=== PATIENT | male | born 1960 | race Caucasian/White ===

== ENCOUNTER → 2018-07-18 14:44 | Outpatient (CLI) | payer BC, OTHER, SELFPAY ==
--- NOTE | 2018-07-18 14:49 | XR_ITS ---
XR knee RT 3V HISTORY: Twisting injury with pain ITS.REASON: RT KNEE PAIN ORDERING PHYSICIAN: Carson Kat MD PATIENT AGE: 58 years COMPARISON: None FINDINGS: There are mild osteoarthritic changes of all 3 compartments with decrease in the joint space and osteophyte formation. There is a 9 mm area of calcific density in the inner condylar region of the distal femur and could be due to an osteophyte or loose body. No fracture or dislocation. No lytic or blastic change. IMPRESSION: Osteoarthritis with possible loose body versus osteophyte in the intercondylar region
== END ==
PROVIDERS: PCP Family Medicine; Visit Provider Family Medicine
DX: M25.561 Pain in right knee (principal)
CPT/HCPCS: 73562

== ENCOUNTER → 2020-08-06 10:29 | Outpatient (CLI) | payer BC, OTHER, SELFPAY | PROVIDERS: PCP Physician Assistant; Visit Provider Physician Assistant | DX: Z20.828 Contact with and (suspected) exposure to other viral communicable diseases (principal); U07.1 COVID-19 | CPT/HCPCS: U0003 ==

== ENCOUNTER 2022-02-17 18:20 | Emergency (ER) | payer BC, OTHER, SELFPAY ==
[2022-02-17 18:25] VITALS: BP 143/70; PULSE 93; RESP 20; TEMP 37.7; O2SAT 95; BMI 34.0
--- NOTE | 2022-02-17 18:45 | HMH.EDUTC ---
[facility] [place] Disposition Clinical Impression: URI (upper respiratory infection) Qualifiers: URI type: unspecified URI Qualified Code(s): J06.9 - Acute upper respiratory infection, unspecified Disposition: Home, Self-Care Condition on Discharge: Good Instructions: DI for Fever (Symptom) -- Adult Additional Instructions: *Monitor Temp, Over the counter Motrin or Tylenol as directed/as needed Tylenol every 4 hours and Motrin every 6 hours (as long as your family doctor has told you that you can take it) for fever or pain. and straight to ER if unable to lower temp less than 101.0 after medication given *Warm salt water gargles may help to soothe the throat *Throat Lozenges *Warm fluids like tea with honey may help to soothe the throat *Sleep elevated *Humidifier/Vaporizer Your throat swab was sent for culture. Those results are typically sent to your primary care. Be sure to follow up in 2-3 days with your family doctor/primary care physician if no improvement so they can review those result and treat if necessary. If you don?t have a primary care doctor, I recommend you get one but in the mean time, you will have to return to a walk in clinic Follow up IMMEDIATELY for new or worsening symptoms or no Noticeable improvement over the next 48-72 hours. 911 for difficulty breathing or swallowing You were tested for today for COVID19 your test result should be back in the next 24-48 hours, you may Check your results on the [facility] My health portal Make sure to take your Vitamins Vit. C Vit D and Zinc if you can take them Prescriptions: predniSONE [Deltasone 10mg tablet] 10 mg PO BID 5 Days #10 tab Transmission Status: Pending to [id number] Azithromycin [Z-Catalino 250mg Tab] 250 mg PO DIRECTED #6 tab Transmission Status: Pending to [id number] Referrals: Carson Kat MD [Primary Care Provider] - As needed Forms: Work/School Release Time of Disposition: 19:14 Medical Decision Making - Jimenez Inquiry Pt receiving controlled substance: No Jimenez was queried for this patient: No Vital Signs: 02/17/22 18:25 02/17/22 18:48 Temperature 99.8 F H 99.8 F H Temperature Source Oral Pulse Rate 93 H Pulse Rate [Right Brachial] 93 H Respiratory Rate 20 20 Blood Pressure 143/70 H Blood Pressure [Right Arm] 143/70 H Blood Pressure Mean [Right Arm] 94 Blood Pressure Source [Right Arm] Automatic Cuff Blood Pressure Position [Right Arm] Sitting 02 Sat by Pulse Oximetry 95 Oxygen Delivery Method Room Air - Lab Data Lab results reviewed: Yes: I reviewed the patient's lab results. Lab Results 02/17/22 18:38: Group A Strep Rapid Negative Orders (Tests/Meds): ORDERS Category Date Time Status Full Resp Panel w/COVID ([facility]) Routine Lab 02/17/22 18:38 Received Strep Screen Confirmation Stat Micro 02/17/22 18:38 Received Medical Decision Narrative: Patient state that he has taken azithromycin and Medrol in the past without reactions or complications [facility] [place] HPI - General Stated complaint: fever,chills,congestion Time Seen by Provider: 02/17/22 18:46 Mode of Arrival: Ambulatory Source of Information: Patient Limitations: No Limitations Description of Symptoms (Recalled from Triage Doc. by RN): PATIENT C/O FEVER AND CONGESTION SINCE YESTERDAY EVENING HEENT Symptoms (Recalled from RN notes): Yes Resp Symptoms (Recalled from RN notes): No Skin Symptoms (Recalled from RN notes): No MS Symptoms (Recalled from RN notes): No Functional Status (Recalled from RN notes): WNL - History of Present Illness Provider Complaint: Patient states that he started feeling bad yesterday States that he has been having fever, body aches, chills sinus congestion and pressure and over all not feeling well States that today he has continued to have fever on and off all day and this evening he was still not feeling well so he came in to get checked - Related Data Home Medications Medication Instructions Al
[2022-02-17 18:48] VITALS: BP 143/70; PULSE 93; RESP 20; TEMP 37.7; O2SAT 95
[2022-02-17 18:51] LABS: Adenovirus,PCR Not Detected (NotDetected); Bordetella Pertussis Not Detected (NotDetected); Chlamydophila Pneumoniae, PCR Not Detected (NotDetected); Coronavirus 19, PCR Not Detected (NotDetected); Coronavirus 229E Not Detected (NotDetected); Coronavirus NL63 Not Detected (NotDetected); Coronavirus OC43 Not Detected (NotDetected); Coronovirus HKU1,PCR Not Detected (NotDetected); Human Metapneumovirus Not Detected (NotDetected); Influenza A, PCR Not Detected (NotDetected); Influenza AH1, 2009 Not Detected (NotDetected); Influenza AH1, PCR Not Detected (NotDetected); Influenza AH3,PCR Not Detected (NotDetected); Influenza B, PCR Not Detected (NotDetected); Mycoplasma Pneumoniae, PCR Not Detected (NotDetected); Parainfluenza 1, PCR Not Detected (NotDetected); Parainfluenza 2, PCR Not Detected (NotDetected); Parainfluenza 3, PCR Not Detected (NotDetected); Parainfluenza 4, PCR Not Detected (NotDetected); Respiratory Syncytial Virus Not Detected (NotDetected); Rhinovirus/Enterovirus Not Detected (NotDetected)
[2022-02-17 19:02] LABS: Strep Scrn Group A (Rapid) Negative (Negative)
== END 2022-02-17 19:41 | disposition home or self-care (01) ==
PROVIDERS: Emergency Provider Nurse Practitioner; PCP Family Medicine
DX: J06.9 Acute upper respiratory infection, unspecified (principal)
CPT/HCPCS: 87430; 87581; 87632; 87798; 99212; C9803; G0463; U0003; U0005

== ENCOUNTER → 2022-04-29 13:30 | Outpatient (CLI) | payer BC, OTHER, SELFPAY ==
[2022-05-01 08:47] LABS: PSA, Free 1.19 ng/mL; Prostate Specific Ag 7.7 ng/mL (0.0-4.0)
== END ==
PROVIDERS: PCP Family Medicine; Visit Provider Urology
DX: R35.0 Frequency of micturition (principal); R97.20 Elevated prostate specific antigen [PSA]
CPT/HCPCS: 36415; 84153; 84154

== ENCOUNTER 2022-10-11 08:00 | Emergency (ER) | payer BC, OTHER, SELFPAY ==
[2022-10-11 08:10] VITALS: BP 147/86; PULSE 78; RESP 20; TEMP 36.6; O2SAT 96; BMI 34.2
--- NOTE | 2022-10-11 08:31 | EXP.UTC ---
Discharge Plan Disposition Patient Disposition: Home, Self-Care Condition: Good Prescriptions Prescriptions: New azithromycin [Zithromax] 250 mg tablet 250 mg PO UD DOSE PK Qty: 6 0RF Rx Instructions: Take two (2) tablets today, then one (1) tablet days #2 thru #5 benzonatate [benzonatate] 100 mg capsule 100 mg PO TIDP PRN (Reason: Cough) Qty: 30 0RF methylprednisolone 4 mg Tablets,Dose Pack 4 mg PO DIRECTED Qty: 21 0RF No Action tamsulosin 0.4 mg capsule 0.4 mg PO DAILY simvastatin 40 mg tablet 40 mg PO DAILY amlodipine benzoate 1 mg/mL suspension 10 mg PO DAILY hydrochlorothiazide 12.5 mg tablet 12.5 mg PO DAILY metoprolol succinate 25 mg tablet extended release 24 hr 25 mg PO DAILY fexofenadine [Amber Allergy] 180 mg tablet 180 mg PO DAILY oxymetazoline [Mucinex Sinus-Max] 0.05 % spray,non-aerosol 2 spray INTRANASAL Q12H PRN timolol maleate 0.25 % drops 1 drp OPHTHALMIC DAILY Gemtesa 75 mg tablet 75 mg PO DAILY Qty: 30 5RF prednisone 10 MG tablet 10 mg PO BID 5 Days Qty: 10 0RF Referrals Follow up/Referrals: Carson Kat MD [Primary Care Provider] - See instructions Activity Restrictions/Add. Instructions Additional Instructions/Restrictions: Drink plenty of fluids. Take tylenol or ibuprofen for pain or fever. Take the medications as directed. Follow up with your regular doctor. GO TO THE ER FOR ANY WORSENING SYMPTOMS Clinical Impressions Clinical Impression: Sinusitis Stand Alone Forms Stand Alone Forms: Work/School Release Discharge ED Provider: Rahul Davis [facility] [place] General Stated complaint: cough, chest congestion, BRYANT Mode of Arrival: Ambulatory Source of Information: Patient Limitations: No Limitations Time Seen by Provider: 10/11/22 08:30 Description of Symptoms (Recalled from Triage Doc. by RN): sinus pressure, congestion, and cough HEENT Symptoms (Recalled from RN notes): Yes Resp Symptoms (Recalled from RN notes): No Skin Symptoms (Recalled from RN notes): No MS Symptoms (Recalled from RN notes): No Functional Status (Recalled from RN notes): n/a History of Present Illness Provider Complaint: He states that for the past 1 week he has had sinus congestion, ear pressure and a cough. Related Data Home Medications Medication Instructions Recorded Confirmed amlodipine benzoate 1 mg/mL oral 10 mg PO DAILY 12/10/21 04/29/22 suspension fexofenadine 180 mg tablet 180 mg PO DAILY 12/10/21 04/29/22 (Amber Allergy) hydrochlorothiazide 12.5 mg tablet 12.5 mg PO DAILY 12/10/21 04/29/22 metoprolol succinate 25 mg 25 mg PO DAILY 12/10/21 04/29/22 tablet,extended release 24 hr oxymetazoline 0.05 % nasal spray 2 spray intranasal Q12H PRN 12/10/21 04/29/22 (Mucinex Sinus-Max) simvastatin 40 mg tablet 40 mg PO DAILY 12/10/21 04/29/22 tamsulosin 0.4 mg capsule 0.4 mg PO DAILY 12/10/21 04/29/22 timolol maleate 0.25 % eye drops 1 drp ophthalmic (eye) DAILY 12/10/21 04/29/22 Previous Rx's Medication Instructions Recorded prednisone 10 mg tablet 10 mg PO BID 5 days #10 tabs 02/17/22 vibegron 75 mg tablet (Gemtesa) 75 mg PO DAILY #30 tabs 05/09/22 azithromycin 250 mg tablet 250 mg PO UD DOSE PK #6 tabs 10/11/22 (Zithromax) benzonatate 100 mg capsule 100 mg PO TIDP PRN Cough #30 caps 10/11/22 methylprednisolone 4 mg tablets in 4 mg PO DIRECTED #21 tabs 10/11/22 a dose pack Allergies Allergy/AdvReac Type Severity Reaction Status Date / Time Penicillins Allergy Verified 10/11/22 08:27 Worker's Comp Is this a Worker's Comp case?: No [facility] Disclaimer: The information contained in this section may have been updated after the patient was seen, as this information can be updated by other users. Social History Smoking Status: Never smoker second hand exposure: No alcohol intake: never substance use
[2022-10-11 09:15] VITALS: BP 147/86; PULSE 78; RESP 20; TEMP 36.6; O2SAT 96
== END 2022-10-11 09:15 | disposition home or self-care (01) ==
PROVIDERS: Emergency Provider Nurse Practitioner Family; PCP Family Medicine
DX: J32.9 Chronic sinusitis, unspecified (principal)
CPT/HCPCS: 99212; 99213; G0463

== ENCOUNTER 2023-09-22 06:10 | Day surgery (SDC) | payer OTHER, SELFPAY ==
[2023-09-20 13:52] VITALS: BMI 35.5
[2023-09-22] VITALS (7 sets, daily range): BP systolic 103–137; BP diastolic 66–93; PULSE 67–84; RESP 16–18; TEMP 36.3–36.6; O2SAT 90–98
[2023-09-22] MEDS: LACTATED RINGERS 1000ML 1,000 ML 25 ML IV (06:45)
--- NOTE | 2023-09-22 07:16 | P.PNANES_ITS ---
[facility] Disclaimer: The information contained in this section may have been updated after the patient was seen, as this information can be updated by other users. Medical History Hyperlipidemia Hypertension Surgical History History of back surgery Family History Other Family history of cancer Family history of diabetes mellitus type II Social History Smoking Status: Never smoker second hand exposure: No alcohol intake: never substance use type: denies use current occupational status: employed Travel in the last 8 weeks: None household members: spouse housing: house caffeine: No [facility] Anesthesia Checklist Patient Identification Patient Identification: Arm Band Structural Data Admitted From: Home Planned Operative Procedure/s: Colonoscopy Consent for Planned Operative Procedure(s) Verified: Yes Verified Documents: Surgical Consent and History and Physical NPO Status Verified Time NPO: 00:00 Additional verifications Anesthesia Reactions: No Airway Assessment Mallampati Score:: Class II C-Spine Mobility Assessed: Yes TMJ Mobility Assessed: Yes Dentition: Dentures-good fit (upper partial. Unable to remove per patient) Neurological Assessment Level of Consciousness: Awake and Alert Anesthesia Plan Anesthesia Risk discussed: Yes Anesthesia Plan: Verified ASA Class: II Anesthesia Type: MAC
--- NOTE | 2023-09-22 07:51 | HMH.SCOPE ---
Procedure: Date: 09/22/23 Patient Date of :: 1960 Procedure Performed:: Total colonoscopy to terminal ileum with snare polypectomy x 3 Indications:: Patient is a 63-year-old male referred for screening colonoscopy. He does state that he underwent a colonoscopy 20 years ago . Performing Provider:: Gt Patel MD Referring Provider:: Buddy Kat MD Sedation:: MAC sedation Procedure:: Patient history was obtained and appropriate physical examination was performed. Patient's medications and allergies were reviewed. Informed consent was obtained after explaining the benefits, alternatives, and risks of the procedure including, but not limited to, bleeding, perforation, missed lesions, and adverse reaction to anesthesia medications. Patient was transported to endoscopy procedure room. Patient was connected to monitoring devices. Throughout the procedure the patient's blood pressure, pulse, and oxygen saturations were monitored continuously. Patient identification and planned procedure were verified by the staff. Patient was positioned in lateral decubitus position. Digital anorectal exam was performed. Variable stiffness Olympus colonoscope was inserted and advanced under direct visualization to the cecum. Adequacy of the colonic preparation was noted. The colonoscope was advanced a short distance into the terminal ileum. The colonoscope was then slowly withdrawn while carefully examining the color, texture, anatomy, and integrity of the mucosoa circumferentially. Within the rectum retroflexion was performed. Colonoscope was then withdrawn. . Colonic preparation was good. Terminal ileum was normal. Within the cecum there was a small sessile polyp removed with cold snare. In the ascending colon there was an elongated somewhat of a ridge polyp which was removed with cold snare. He had a few rare left-sided diverticuli. In the proximal sigmoid colon there was a tiny polyp removed with cold snare. . Findings:: Rare diverticuli Polyps as noted above (adenomatous appearing polyp in the cecum, ascending, and proximal sigmoid) Recommendations:: Likely repeat colonoscopy 3 years pending pathology Complications:: None immediately apparent Estimated blood obtained (mL): 1 Colonoscopy Component Colonoscopy Component Was a colonoscopy performed during today's procedure?: Yes Recommended follow up colonoscopy of at least 10 years?: No If no, follow up colonoscopy recommended in ___ years?: See above Reason for not recommending >/= 10 yr follow-up interval?: See above
--- NOTE | 2023-09-22 07:57 | P.PNANES_ITS ---
[facility] Anesthesia Record Part I Anesthesia Record I Intake, IV Amount: 500 Hydration: Adequate Estimated blood loss (mL): 1 Urine output (mL): 0 Blood Products used (#): none Blood Pressure: 103/68 SaO2: 90 Pulse Rate: 79 Airway Patency: Patent Respiratory Rate: 16 Temperature: 97.5 F Patient is:: Drowsy and Stable Stable to PACU at:: 07:52
== END 2023-09-22 08:30 | disposition home or self-care (01) ==
PROVIDERS: PCP Family Medicine; Visit Provider Surgery
PROC: 0DJD8ZZ Inspection of Lower Intestinal Tract, Via Natural or Artificial Opening Endoscopic (ICD-10-PCS; CPT 45385; principal; 2023-09-22 07:30)
DX: Z12.11 Encounter for screening for malignant neoplasm of colon (principal); D12.2 Benign neoplasm of ascending colon; D12.0 Benign neoplasm of cecum; D12.5 Benign neoplasm of sigmoid colon; K57.30 Diverticulosis of large intestine without perforation or abscess without bleeding
CPT/HCPCS: 45385

== ENCOUNTER 2024-05-02 14:03 | Outpatient (CLI) | payer OTHER, SELFPAY ==
--- NOTE | 2024-05-02 14:07 | XR_ITS ---
FINAL REPORT CLINICAL HISTORY: knee pain FINDINGS: Right knee Three views were obtained. There is no acute fracture or dislocation. There are moderate degenerative changes with medial compartment narrowing. Soft tissue calcification is seen posteriorly. IMPRESSION: Moderate degenerative changes. Reviewed, Interpreted and Dictated by Gt Arredondo III, MD Transcribed by Sheila Delacruz Authenticated and [facility]
== END 2024-05-02 23:59 | disposition home or self-care (01) ==
LOC: RAD 14:04
PROVIDERS: PCP Family Medicine; Visit Provider Orthopaedic Surgery
DX: M25.561 Pain in right knee (principal); M17.11 Unilateral primary osteoarthritis, right knee
CPT/HCPCS: 73562

== ENCOUNTER 2024-07-24 07:38 | Outpatient (CLI) | payer OTHER, SELFPAY ==
[2024-07-24 07:58] LABS: Basophils # 0.1 K/mm3 (0-0.2); Basophils % 1.3 % (0.1-2.0); Eosinophils # 0.2 K/mm3 (0.0-0.4); Eosinophils % 2.5 % (0.1-12.0); Hemoglobin 16.5 g/dL (14.1-18.0); Lymphocytes % 30.4 % (10-50); Mean Corpuscular HGB Conc 33.7 g/dL (31.8-35.4); Mean Corpuscular Hemoglobin 30.6 pg (27.0-31.2); Mean Platelet Volume 7.3 fl (7.4-10.4); Monocytes # 0.3 K/mm3 (0.1-1.0); Monocytes % 4.4 % (1.7-9.3); Neutrophils % 61.5 % (37.0-80.0); Platelet Count 224 K/mm3 (142-424); Red Blood Count 5.38 M/mm3 (4.60-6.20); Red Cell Distribution Width 13.8 % (11.5-17.5); White Blood Count 6.5 K/mm3 (4.8-10.8)
[2024-07-24 08:42] LABS: Albumin Level 4.4 g/dl (3.5-5.0); Chloride 110 mmol/L (98-107); Potassium 3.9 mmoL/L (3.5-5.1); Sodium 142 mmol/L (136-145)
[2024-07-24 08:44] LABS: Alanine Aminotransferase 32 U/L (12-78); Aspartate Amino Transferase 31 U/L (17-59); Blood Urea Nitrogen 14 mg/dl (9-20); Estimated Glomerular Filt Rate 75 ml/min (>60); GFR (African American) 91 ML/MIN (>60)
[2024-07-24 08:45] LABS: Albumin/Globulin Ratio 1.8 (1.1-1.8); Alkaline Phosphatase 82 U/L (38-126); Anion Gap 10.9 mEq/L (5-15); Bilirubin,Total 0.5 mg/dl (0.2-1.3); Calcium 9.7 mg/dl (8.4-10.2); Carbon Dioxide 25 mmol/L (22.0-30.0); Chol/HDL Ratio 4.3 (1-3.5); Cholesterol 159 mg/dl (140-200); Globulin 2.5 g/dL (1.3-3.2); Glucose 126 mg/dl (74-100); HDL Cholesterol 37 mg/dl (40-60); Total Protein,Serum 6.9 g/dl (6.3-8.2); Triglycerides 156 mg/dl (30-150); VLDL Cholesterol 31 mg/dL (0-40)
[2024-07-24 08:56] LABS: Direct LDL Cholesterol 99.21 mg/dL (100-129)
[2024-07-24 09:35] LABS: Hemoglobin A1C 5.9 % (4.0-6.0)
== END 2024-07-24 23:59 | disposition home or self-care (01) ==
LOC: LAB 07:39
PROVIDERS: PCP Internal Medicine; Visit Provider Internal Medicine
DX: Z00.00 Encounter for general adult medical examination without abnormal findings (principal); Z13.1 Encounter for screening for diabetes mellitus; Z13.220 Encounter for screening for lipoid disorders
CPT/HCPCS: 36415; 80053; 80061; 83036; 85025

== ENCOUNTER 2025-04-25 12:08 | Outpatient (CLI) | payer OTHER, SELFPAY ==
--- NOTE | 2025-04-25 12:11 | XR_ITS ---
FINAL REPORT CLINICAL HISTORY: Low back pain FINDINGS: AP and lateral views of the lumbar spine were obtained. There is no prior exam for comparison. There is no acute fracture or malalignment. Vertebral body height is preserved. There is mild degenerative disc disease, most pronounced at L5-S1. No acute paraspinal abnormality. IMPRESSION: Mild degenerative disc disease. Reviewed, Interpreted and Dictated by Anita Lowe MD Transcribed by Sheila Delacruz Authenticated and [facility]
== END 2025-04-25 23:59 | disposition home or self-care (01) ==
LOC: RAD 12:09
PROVIDERS: PCP Internal Medicine; Visit Provider Internal Medicine
DX: M51.369 Other intervertebral disc degeneration, lumbar region without mention of lumbar back pain or lower extremity pain (principal)
CPT/HCPCS: 72100

== ENCOUNTER 2025-05-13 12:47 | Outpatient (RCR) | payer OTHER, SELFPAY | END 2025-05-13 23:59 | disposition home or self-care (01) | LOC: PT 12:47 | PROVIDERS: Visit Provider Internal Medicine | DX: M54.50 Low back pain, unspecified (principal) | CPT/HCPCS: 97161 ==